=== PATIENT | female | born 1995 | race Caucasian/White ===

== ENCOUNTER 2018-12-02 12:18 | Emergency (ER) | payer BC, OTHER ==
[~2018-12-02 12:18] MED LIST: MULT-859 PO
--- NOTE | 2018-12-02 12:30 | ER Report ---
History and Physical Time Seen By MD: 12:30 HPI/ROS CHIEF COMPLAINT: Cough HISTORY OF PRESENT ILLNESS: This is a 23-year-old female presents to the emergency department for a cough. Patient states that over the last month she's had an intermittently progressive cough, now she is producing green to yellowish sputum, she also developed some left rib pain along the margin of her breast, midaxillary, the pain is reproducible with pressure, patient however states that with pressure it does seem to relieve the discomfort when she is coughing. No nausea or vomiting. No chest pain. Intermittently short of breath however this seems to be associated with coughing episodes. REVIEW OF SYSTEMS: Respiratory: As above. Cardiovascular: No chest pain, no palpitations. Gastrointestinal: No vomiting, no abdominal pain. Musculoskeletal: As above. Allergies: Coded Allergies: No Known Drug Allergies (Unverified , 12/10/15) Home Meds Active Scripts Prednisone (PREDNISONE) 20 Mg Tablet, 20 MG PO BID, #10 TAB Prov:ELIZABETH CHAPA [facility]- 12/02/18 Albuterol Sulfate 90 Mcg/Act (PROAIR HFA 90 MCG/ACT) 8.5 Gm Hfa.aer.ad, 1-2 PUFF IH 3-4XD, #1 INHALER 0 Refills Prov:ELIZABETH CHAPA [facility]- 12/02/18 Reported Medications Multivits,Ca,Minerals/Iron/Fa (THERA-M TABLET) 1 Each Tablet, 1 EACH PO DAILY 12/10/15 Past Medical/Surgical History The patient has a past medical and surgical history of arthritis, back pain, depression, left hip surgery. Reviewed Nurses Notes: Yes Hx Smoking: No Exposure to Second Hand Smoke?: No Hx Substance Use Disorder: No Hx Alcohol Use: No Constitutional Vital Sign - Last 24 Hours 12/02/18 12/02/18 12/02/18 12/02/18 12:30 12:50 12:56 12:56 Temp 97.7 Pulse 84 70 78 Resp 18 22 B/P (MAP) 140/79 Pulse Ox 95 92 O2 Delivery Room Air Room Air 12/02/18 12/02/18 12/02/18 14:40 14:45 15:00 Temp 98.6 Pulse 65 68 101 Resp 18 18 18 B/P (MAP) 116/66 (83) Pulse Ox 96 O2 Delivery Room Air Physical Exam General Appearance: The patient is alert, has no immediate need for airway protection and no current signs of toxicity. Eyes: Pupils equal and round no injection. Respiratory: Chest is non tender, lungs are clear to auscultation. Cardiac: regular rate and rhythm. Gastrointestinal: Abdomen is soft and non tender, no masses, bowel sounds normal. Musculoskeletal: Neck: Neck is supple and non tender. Extremities have full range of motion and are non tender. Skin: No rashes or lesions. DIFFERENTIAL DIAGNOSIS: After history and physical exam differential diagnosis was considered for bronchitis, pneumonia, upper after infection, influenza. Medical Decision Making EKG/Imaging [place] [facility] [place] Nohemi Conklin : 1995 Visit/Account:[id number] Date of Sevice: 12/02/2018 CHEST PA LAT, RIBS LEFT Indication: cough, rib pain Comparison: None. Findings: Lungs: Clear. Mediastinum/pulmonary vasculature: Heart size and pulmonary vasculature are normal. Bones/soft tissues: The left ribs are normal. IMPRESSION: 1. Clear lungs. 2. No evidence of rib fracture. Report Dictated By: Bobby Arrieta at 12/02/2018 1:40 PM Report E-Signed By: Bobby Arrieta at 12/02/2018 1:44 PM WSN:[id number] ED Course/Re-evaluation ED Course The patient was admitted to room. A history of physical were obtained. Differential diagnoses were considered. An x-ray of the chest was negative for any acute coronary pulmonary process, negative for fracture. I reviewed the results with the patient, did tell her this is likely a viral bronchitis will pass, I did give her a prescription for Magic mouthwash, prednisone and an albuterol inhaler with AeroChamber, did tell the patient that she should follow- up with her primary care provider within one week for reevaluation. Patient stated understanding and was discharged home. She was also given DuoNeb 2 with significant improvement of her coughing episodes. Decision to Disposition Date: Dec 02, 2018 Decision to Disposition Time: 14:24 Depart Departure Latest Vital Signs Vital Signs Date Time Temp Pulse Resp B/P (MAP) Pulse Ox O2 Delivery O2 Flow Rate FiO2 12/02/18 15:00 98.6 101 18 116/66 (83) 96 Room Air Impression: Primary Impression: Bronchitis Condition: Improved Disposition: HOME OR SELF-CARE New Scripts Prednisone (PREDNISONE) 20 Mg Tablet 20 MG PO BID, #10 TAB Prov: ELIZABETH CHAPA 12/02/18 Albuterol Sulfate 90 Mcg/Act (PROAIR HFA 90 MCG/ACT) 8.5 Gm Hfa.aer.ad 1-2 PUFF IH 3-4XD, #1 INHALER 0 Refills Prov: ELIZABETH CHAPA 12/02/18 Patient Instructions: Acute Bronchitis (ED), Viral Syndrome (ED) Additional Instructions: Be sure to drink plenty of fluids. Get plenty of rest. Use the inhaler and AeroChamber as directed. Take the prednisone as prescribed. Use the Magic mouthwash as needed for sore throat. Follow-up with [facility] in one week for reevaluation. Return to the emergency department for any concerns or worsening symptoms. ELIZABETH CHAPA Dec 02, 2018 12:30
[2018-12-02] MEDS ORDERED: IBUPROFEN 600 MG TAB PO ONE (12:40)
[2018-12-02] MEDS ORDERED: ALBUTEROL/IPRATROPIUM 3 ML NEB NEB ONE ×2 (12:40→14:25)
--- NOTE | 2018-12-02 13:49 | RADIOLOGY IMAGING REPORT ---
FACILITY: [facility] - [place] PATIENT NAME: Nohemi Conklin : 1995 MR: [id number] V: [id number] EXAM DATE: ORDERING PHYSICIAN: ELIZABETH CHAPA TECHNOLOGIST: Location: [facility] - [place] Patient: Nohemi Conklin : 1995 Visit/Account:[id number] Date of Sevice: 12/02/2018 CHEST PA LAT, RIBS LEFT Indication: cough, rib pain Comparison: None. Findings: Lungs: Clear. Mediastinum/pulmonary vasculature: Heart size and pulmonary vasculature are normal. Bones/soft tissues: The left ribs are normal. IMPRESSION: 1. Clear lungs. 2. No evidence of rib fracture. Report Dictated By: Bobby Arrieta at 12/02/2018 1:40 PM Report E-Signed By: Bobby Arrieta at 12/02/2018 1:44 PM WSN:[id number]
--- NOTE | 2018-12-02 13:49 | RADIOLOGY IMAGING REPORT ---
FACILITY: PATIENT NAME: Nohemi Conklin : 1995 MR: [id number] V: [id number] EXAM DATE: ORDERING PHYSICIAN: ELIZABETH CHAPA TECHNOLOGIST: Location: [facility] Patient: Nohemi Conklin : 1995 Visit/Account:[id number] Date of Sevice: 12/02/2018 CHEST PA LAT, RIBS LEFT Indication: cough, rib pain Comparison: None. Findings: Lungs: Clear. Mediastinum/pulmonary vasculature: Heart size and pulmonary vasculature are normal. Bones/soft tissues: The left ribs are normal. IMPRESSION: 1. Clear lungs. 2. No evidence of rib fracture. Report Dictated By: Bobby Arrieta at 12/02/2018 1:40 PM Report E-Signed By: Bobby Arrieta at 12/02/2018 1:44 PM WSN:[id number]
[2018-12-02] MEDS ORDERED: PRED20TA6 PO (14:26)
[2018-12-02] MEDS ORDERED: ALBU8.5H IH (14:26)
[2018-12-02 15:00] VITALS: BP 116/66
== END 2018-12-02 15:03 | disposition home or self-care (01) ==
LOC: ER 12:37
DX: J40 Bronchitis, not specified as acute or chronic (principal)
CPT/HCPCS: 71046; 71100; 94640; 99284; J7620